=== PATIENT | male | born 1940 | race Caucasian/White ===

== ENCOUNTER 2016-08-05 12:52 | Emergency (ER) | payer OTHER ==
--- NOTE | 2016-08-05 16:20 | ED ORDER SUMMARY ---
..... Patient: DIRK MONTEZ OrderSheet [facility] VisitID: [id number] [address] [place] [address] 76y, M Registration Date/Time: 08/05/2016 ORDER SHEET Weight: 86.1 kg (stated) Allergies: No Known Drug Allergy GENERAL ORDERS: - (please stefano area of erythema with skin pen) (16:16 08/05/2016 HBivens A.R.N.P.) (16:41 Roseanna R.N.) MEDICATION ORDERS: Ceftriaxone IM 1 gm (NOW) (16:15 08/05/2016 HBivens A.R.N.P.) (16:41 Roseanna R.N.) IV FLUIDS: ORDER SHEET NOTES: [Electronically signed by Ayden Talbot R.N. (18:06 08/05/2016)] [Electronically signed by Kimberly JuarezR.N.PSara (23:58 08/05/2016)] [Electronically locked/signed by Ayden Talbot R.N. (18:06 08/05/2016)]
--- NOTE | 2016-08-05 16:20 | ED CLINICAL REPORT ---
Clinical Report - Physicians/Mid Levels [facility] [address] [place] [address] 08/05/2016 12:53 Patient: DIRK MONTEZ Time Seen: 15:48; initial patient contact, initial documentation, patient care assumed. Arrived- By private vehicle. Historian- patient. HISTORY OF PRESENT ILLNESS Chief Complaint: LESION. This started about 1 weeks ago and is still present. Not itchy, painful or burning. It has been located on the right 1st toe. No cause has been identified. (not sure what happened, had sore there). Similar symptoms previously: None. Recent medical care: The patient was seen recently in the office. ( went to dr about a week ago, I&D attempted, but nothing came out, placed on Keflex, got a call today that the wound cx was mrsa, was told to come to hospital for iv abx). REVIEW OF SYSTEMS No fever or difficulty breathing. All systems otherwise negative, except as recorded above. PAST HISTORY See nurses notes. PROBLEMS: Abscess. Pedal Edema. Sinus Tachycardia. Unstable Angina. Hypertension. Abdominal Pain. Contusion. Diarrhea. Vertigo. Abnormal Liver Function Test. Hyponatremia. Syncope. Gastroesophageal Reflux Disease. Depression. Cancer. Hypercholesterolemia. Hypotension. Arthritis. PPH. --13:48 Ganga Kearney RDimitri. ADDITIONAL SURGERIES: Abdominal Sx. Adenoidectomy. Appendectomy. Cataract Surgery. Hernia Repair. Index finger right . Perforatated Diverticulitis []. Right great toe. Shoulder Surgery. Tonsillectomy. --13:48 Ganga Kearney RDimitri. SOCIAL HISTORY Heavy alcohol use; consumes two beers a day. No drug use. No recent travel. Is a local resident. FAMILY HISTORY Negative. ADDITIONAL NOTES The nursing notes have been reviewed with agreement regarding the chief complaint, HPI, ROS, PMH and patient medications and allergies. PHYSICAL EXAM Vital Signs: 08/05/2016 13:42 BP: 144/69. HR: 79. RR: 18. O2 saturation: 98%. Temp: 98.2 F. Have been reviewed as normal and appear to be correct. Appearance: Alert. Oriented X3. No acute distress. Neck: Neck supple. Respiratory: No respiratory distress. Skin: Skin warm and dry. Normal skin color. No rash. Normal skin turgor. (healing wound/ulcer to medial side of R great toe, flat, no fluctuance, with mild erythema edges, no warmth, no dc). Extremities: Normal external inspection. Extremities nontender. Neuro: Oriented X 3. No motor deficit. No sensory deficit. PROGRESS AND PROCEDURES Patient counseled in person regarding the patient's stable condition and diagnosis. 16:20. Differential Diagnosis: Other possible considerations: mrsa, cellulitis, corn, ulcer, abscess, infected abrasion, blister. Above considerations are based on history and physical exam. Differential diagnosis was discussed with patient. Disposition: Discharged home in good and unchanged condition (16:20). Condition: good and stable. CLINICAL IMPRESSION Single superficial healing abscess to the right foot. INSTRUCTIONS Warnings: GENERAL WARNINGS: Return or contact your physician immediately if your condition worsens or changes unexpectedly, if not improving as expected, or if other problems arise. Specifically return if problem worsens. Prescription Medications: Bactrim DS 800 mg / 160 mg: take 1 tablet orally every 12 hours for 10 days. No refill. Bactroban 2% ointment: apply small amount to affected area three times daily for 5 days. Dispense twenty-two (22) grams. No refills. Substitution is permissible. Follow-up: Follow up with your doctor in about three days even if well and for wound check. Call for an appointment. Summary of care provided to patient. Understanding of the discharge instructions verbalized by patient. (Electronically signed by Kimberly Juarez A.R.N.P. 08/05/2016 23:58)
--- NOTE | 2016-08-05 16:20 | ED NURSING NOTES ---
Clinical Report - Nurses [address] [place] [address] 08/05/2016 12:53 Patient: DIRK MONTEZ TRIAGE Triage time 13:42 Aug 05 2016. Acuity: LEVEL 3. LUCI COMA SCORE: [place] Coma Scale: 15- eyes open spontaneously (4); best verbal response- oriented x 4 (5); best motor response- obeys commands (6). --13:51 Ganga Kearney R.N. 13:42 08/05/16. BP: 144/69. HR: 79. RR: 18. O2 saturation: 98%. Temp: 98.2 F. Pain level now 10/06. --13:51 Ganga Kearney R.N. Chief Complaint: Location of symptoms- (Right foot MRSA wound - referred by PCP). late entry -13:42. --18:04 Ayden Talbot R.N. Weight: 86.1 kg stated. Height/Length: 74 inches Per Patient. BMI: 24.4. --13:50 Ganga Kearney R.N. Medications Cephalexin Oral. --13:45 Ganga Kearney R.N. Diltiazem HCl Oral. --13:46 Ganga Kearney R.N. Metoprolol Tartrate Oral. --13:46 Ganga Kearney R.N. TraZODone HCl Oral. --13:46 Ganga Kearney R.N. Probiotic + [place]-3 Oral. --13:46 Ganga Kearney R.N. Atorvastatin Calcium Oral. --13:47 Ganga Kearney R.N. Vitamins/Minerals Oral. --13:47 Ganga Kearney R.N. Allergies No Known Drug Allergy. --13:48 Ganga Kearney R.N. History Historian: patient. Primary physician (Dr. Lin [facility]). ( examined right big toe abscess and took a swab which came back MRSA positive. Was directed by MD to go to ER michael.). No injury occurred. ( Right big toe abscess was attempted to drain but MD only could get a little of fluid from it.). He has had swelling and redness. No fever, difficulty breathing, skin rash, itching or trouble walking. No weakness. Treatment [employer]: (antibiotics). PAST MEDICAL HX: Tetanus status: up-to-date. SOCIAL HX: Smoker- current status unknown. Occasional alcohol use; consumes two beers a day. No infectious disease exposure. SELF HARM ASSESSMENT: A self harm assessment was performed. The patient answered "yes" to the question "Have you recently felt down, depressed, or hopeless?" and "no" to the question "Do you have thoughts of harming or killing yourself?". FALL RISK ASSESSMENT: Fall risk assessment completed. No fall risk identified. NUTRITIONAL RISK ASSESSMENT: The nutritional risk assessment revealed no deficiencies. FUNCTIONAL ASSESSMENT: Functional assessment: no impairments noted. LEARNING NEEDS ASSESSMENT: The learning needs assessment revealed no barriers. ABUSE ASSESSMENT: Abuse assessment: (yes) The patient was asked "Do you feel safe in your home?". SKIN INTEGRITY ASSESSMENT: Skin integrity risk assessment completed. No skin integrity risk identified. --13:51 Ganga Kearney R.N. PROBLEMS: Abscess. Pedal Edema. Sinus Tachycardia. Unstable Angina. Hypertension. Abdominal Pain. Contusion. Diarrhea. Vertigo. Abnormal Liver Function Test. Hyponatremia. Syncope. Gastroesophageal Reflux Disease. Depression. Cancer. Hypercholesterolemia. Hypotension. Arthritis. PPH. --13:48 Ganga Kearney R.N. ADDITIONAL SURGERIES: Abdominal Sx. Adenoidectomy. Appendectomy. Cataract Surgery. Hernia Repair. Index finger right . Perforatated Diverticulitis []. Right great toe. Shoulder Surgery. Tonsillectomy. --13:48 Ganga Kearney R.N. Interventions ID band on patient. --13:51 Ganga Kearney R.N. PHYSICAL ASSESSMENT Ambulatory to room. GENERAL / NEURO / PSYCH: Oriented X 4. Alert. Appears in no acute distress. No weakness. No numbness. CVS: Capillary refill is not greater than 2 seconds. EXTREMITIES: Increased warmth on the extremities. No lower extremity edema. No limited ROM present or calf tenderness. Right foot: and foot, plantar aspect. Right big toe: tenderness and erythema. SKIN: Single wound present on the right foot. Skin is warm and dry. --13:54 Ganga Kearney R.N. NURSING PROGRESS NOTES The initial plan of care for this patient includes an assessment with efforts to address patient positioning; impairment of the integumentary system. Pulse oximeter and NIBP monitor placed on patient. Call light placed in reach. Side rails up x 1. Bed placed in lowest position. Brakes of bed on. --13:55 Ganga Kearney R.N. 15:51 08/05/16. BP: 158/81. HR: 87. RR: 20. O2 saturation: 98% on room air. Pain level now: 09/08. --15:51 Ayden Talbot R.N. 16:41 08/05/2016 Ceftriaxone IM 1 gm given. Given in the left deltoid. Allergies verified and confirmed 5 rights. --16:41 Ayden Talbot R.N. 16:50 08/05/2016 Ceftriaxone IM Response: no adverse reaction. --16:58 Ayden Talbot R.N. 16:00 08/05/16. BP: 135/76. HR: 86. RR: 20. O2 saturation: 98% on room air. Pain level now: 09/08. --18:02 Ayden Talbot R.N. DISPOSITION / DISCHARGE 16:58 08/05/16. Departure time: 1650. Condition at departure: unchanged and stable. No learning barriers present. Discharge instructions provided and reviewed with the patient. Reviewed warnings. Reviewed medication(s). Treatments reviewed. Patient verbalized understanding. Written instructions provided in Ivorian. The patient was discharged by the nurse practitioner. He was discharged home. He left the Emergency Department ambulatory and via private vehicle. Patient driving. --16:58 Ayden Talbot R.N. 16:30 08/05/16. BP: 135/85. HR: 90. RR: 20. O2 saturation: 99% on room air. Temp: 98.2 F (oral). Pain level now: 09/08. --16:58 Ayden Talbot R.N. late entry -16:58. ( Provided thorough pt teaching regarding wound care, meds, f/u plan.). --18:06 Ayden Talbot R.N. Locked/Released at 08/05/2016 18:06 by Ayden Talbot R.N.
--- NOTE | 2016-08-05 16:20 | ED NURSING NOTES ---
Clinical Report - Nurses [address] [place] [address] 08/05/2016 12:53 Patient: DIRK MONTEZ TRIAGE Triage time 13:42 Aug 05 2016. Acuity: LEVEL 3. LUCI COMA SCORE: [place] Coma Scale: 15- eyes open spontaneously (4); best verbal response- oriented x 4 (5); best motor response- obeys commands (6). --13:51 Ganga Kearney R.N. 13:42 08/05/16. BP: 144/69. HR: 79. RR: 18. O2 saturation: 98%. Temp: 98.2 F. Pain level now 10/06. --13:51 Ganga Kearney R.N. Chief Complaint: Location of symptoms- (Right foot MRSA wound - referred by PCP). late entry -13:42. --18:04 Ayden Talbot R.N. Weight: 86.1 kg stated. Height/Length: 74 inches Per Patient. BMI: 24.4. --13:50 Ganga Kearney R.N. Medications Cephalexin Oral. --13:45 Ganga Kearney R.N. Diltiazem HCl Oral. --13:46 Ganga Kearney R.N. Metoprolol Tartrate Oral. --13:46 Ganga Kearney R.N. TraZODone HCl Oral. --13:46 Ganga Kearney R.N. Probiotic + [place]-3 Oral. --13:46 Ganga Kearney R.N. Atorvastatin Calcium Oral. --13:47 Ganga Kearney R.N. Vitamins/Minerals Oral. --13:47 Ganga Kearney R.N. Allergies No Known Drug Allergy. --13:48 Ganga Kearney R.N. History Historian: patient. Primary physician (Dr. Lin [facility]). ( examined right big toe abscess and took a swab which came back MRSA positive. Was directed by MD to go to ER michael.). No injury occurred. ( Right big toe abscess was attempted to drain but MD only could get a little of fluid from it.). He has had swelling and redness. No fever, difficulty breathing, skin rash, itching or trouble walking. No weakness. 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 PAST MEDICAL HX: Tetanus status: up-to-date. SOCIAL HX: Smoker- current status unknown. Occasional alcohol use; consumes two beers a day. No infectious disease exposure. SELF HARM ASSESSMENT: A self harm assessment was performed. The patient answered "yes" to the question "Have you recently felt down, depressed, or hopeless?" and "no" to the question "Do you have thoughts of harming or killing yourself?". FALL RISK ASSESSMENT: Fall risk assessment completed. No fall risk identified. NUTRITIONAL RISK ASSESSMENT: The nutritional risk assessment revealed no deficiencies. FUNCTIONAL ASSESSMENT: Functional assessment: no impairments noted. LEARNING NEEDS ASSESSMENT: The learning needs assessment revealed no barriers. ABUSE ASSESSMENT: Abuse assessment: (yes) The patient was asked "Do you feel safe in your home?". SKIN INTEGRITY ASSESSMENT: Skin integrity risk assessment completed. No skin integrity risk identified. --13:51 Ganga Kearney R.N. PROBLEMS: Abscess. Pedal Edema. Sinus Tachycardia. Unstable Angina. Hypertension. Abdominal Pain. Contusion. Diarrhea. Vertigo. Abnormal Liver Function Test. Hyponatremia. Syncope. Gastroesophageal Reflux Disease. Depression. Cancer. Hypercholesterolemia. Hypotension. Arthritis. PPH. --13:48 Ganga Kearney R.N. ADDITIONAL SURGERIES: Abdominal Sx. Adenoidectomy. Appendectomy. Cataract Surgery. Hernia Repair. Index finger right . Perforatated Diverticulitis []. Right great toe. Shoulder Surgery. Tonsillectomy. --13:48 Ganga Kearney R.N. Interventions ID band on patient. --13:51 Ganga Kearney R.N. PHYSICAL ASSESSMENT Ambulatory to room. GENERAL / NEURO / PSYCH: Oriented X 4. Alert. Appears in no acute distress. No weakness. No numbness. CVS: Capillary refill is not greater than 2 seconds. EXTREMITIES: Increased warmth on the extremities. No lower extremity edema. No limited ROM present or calf tenderness. Right foot: and foot, plantar aspect. Right big toe: tenderness and erythema. SKIN: Single wound present on the right foot. Skin is warm and dry. --13:54 Ganga Kearney R.N. NURSING PROGRESS NOTES The initial plan of care for this patient includes an assessment with efforts to address patient positioning; impairment of the integumentary system. Pulse oximeter and NIBP monitor placed on patient. Call light placed in reach. Side rails up x 1. Bed placed in lowest position. Brakes of bed on. --13:55 Ganga Kearney R.N. 15:51 08/05/16. BP: 158/81. HR: 87. RR: 20. O2 saturation: 98% on room air. Pain level now: 09/08. --15:51 Ayden Talbot R.N. 16:41 08/05/2016 Ceftriaxone IM 1 gm given. Given in the left deltoid. Allergies verified and confirmed 5 rights. --16:41 Ayden Talbot R.N. 16:50 08/05/2016 Ceftriaxone IM Response: no adverse reaction. --16:58 Ayden Talbot R.N. 16:00 08/05/16. BP: 135/76. HR: 86. RR: 20. O2 saturation: 98% on room air. Pain level now: 09/08. --18:02 Ayden Talbot R.N. DISPOSITION / DISCHARGE 16:58 08/05/16. Departure time: 1650. Condition at departure: unchanged and stable. No learning barriers present. Discharge instructions provided and reviewed with the patient. Reviewed warnings. Reviewed medication(s). Treatments reviewed. Patient verbalized understanding. Written instructions provided in Taiwanese. The patient was discharged by the nurse practitioner. He was discharged home. He left the Emergency Department ambulatory and via private vehicle. Patient driving. --16:58 Ayden Talbot R.N. 16:30 08/05/16. BP: 135/85. HR: 90. RR: 20. O2 saturation: 99% on room air. Temp: 98.2 F (oral). Pain level now: 09/08. --16:58 Ayden Talbot R.N. late entry -16:58. ( Provided thorough pt teaching regarding wound care, meds, f/u plan.). --18:06 Ayden Talbot R.N. Locked/Released at 08/05/2016 18:06 by Ayden Talbot R.N.
--- NOTE | 2016-08-05 16:20 | ED ORDER SUMMARY ---
..... Patient: DIRK MONTEZ OrderSheet [facility] VisitID: [id number] [address] [place] [address] 76y, M Registration Date/Time: 08/05/2016 ORDER SHEET Weight: 86.1 kg (stated) Allergies: No Known Drug Allergy GENERAL ORDERS: - (please stefano area of erythema with skin pen) (16:16 08/05/2016 HBivens A.R.N.P.) (16:41 Roseanna R.N.) MEDICATION ORDERS: Ceftriaxone IM 1 gm (NOW) (16:15 08/05/2016 HBivens A.R.N.P.) (16:41 Roseanna R.N.) IV FLUIDS: ORDER SHEET NOTES: [Electronically signed by Ayden Talbot R.N. (18:06 08/05/2016)] [Electronically signed by Kimberly JuarezR.N.PSara (23:58 08/05/2016)] [Electronically locked/signed by Ayden Talbot R.N. (18:06 08/05/2016)]
--- NOTE | 2016-08-05 23:59 | ED MAR SUMMARY ---
..... Medication Administration Record [facility] [address] [place] [address] Patient: DIRK MONTEZ Visit ID: [id number] 76y, M Weight: 86.1 kg Height/Length: 74 in BMI: 24.4 ALLERGIES: No Known Drug Allergy Given 16:41 08/05/2016 Ayden Talbot R.N. Medication Administered: CEFTRIAXONE [IM], Dose: 1 gm IM. Medication Ordered: Ceftriaxone IM 1 gm (NOW).
--- NOTE | 2016-08-05 23:59 | ED MED RECONCILIATION SUMMARY ---
Patient: DIRK MONTEZ Medication Reconciliation Report [facility] VisitID: [id number] [place] [address] 76y, M Registration Date/Time: 08/05/2016 Weight: 86.1 kg Height/Length: 74 in. BMI: 24.4 ALLERGIES: No Known Drug Allergy The patient's Home Medications are listed below: THE FOLLOWING MEDICATIONS NEED TO BE RECONCILED: Atorvastatin Calcium Oral Cephalexin Oral Diltiazem HCl Oral Metoprolol Tartrate Oral Probiotic + [place]-3 Oral TraZODone HCl Oral Vitamins/Minerals Oral The source(s) of the original Home Medication information: Not obtained. The following Medications were given to the patient in the Emergency Department: Ceftriaxone [IM] IM 1 gm, administered: 08/05/2016 4:41:00 PM The following Medications were prescribed to the patient: Bactrim DS 800 mg / 160 mg: take 1 tablet orally every 12 hours for 10 days. No refill. -- Kimberly Juarez A.R.N.P. Bactroban 2% ointment: apply small amount to affected area three times daily for 5 days. Dispense twenty-two (22) grams. No refills. Substitution is permissible. -- Kimberly Juarez A.R.N.P.
--- NOTE | 2016-08-05 23:59 | ED MAR SUMMARY ---
..... Medication Administration Record [facility] [address] [place] [address] Patient: DIRK MONTEZ Visit ID: [id number] 76y, M Weight: 86.1 kg Height/Length: 74 in BMI: 24.4 ALLERGIES: No Known Drug Allergy Given 16:41 08/05/2016 Ayden Talbot R.N. Medication Administered: CEFTRIAXONE [IM], Dose: 1 gm IM. Medication Ordered: Ceftriaxone IM 1 gm (NOW).
--- NOTE | 2016-08-05 23:59 | ED MED RECONCILIATION SUMMARY ---
Patient: DIRK MONTEZ Medication Reconciliation Report [facility] VisitID: [id number] [place] [address] 76y, M Registration Date/Time: 08/05/2016 Weight: 86.1 kg Height/Length: 74 in. BMI: 24.4 ALLERGIES: No Known Drug Allergy The patient's Home Medications are listed below: THE FOLLOWING MEDICATIONS NEED TO BE RECONCILED: Atorvastatin Calcium Oral Cephalexin Oral Diltiazem HCl Oral Metoprolol Tartrate Oral Probiotic + [place]-3 Oral TraZODone HCl Oral Vitamins/Minerals Oral The source(s) of the original Home Medication information: Not obtained. The following Medications were given to the patient in the Emergency Department: Ceftriaxone [IM] IM 1 gm, administered: 08/05/2016 4:41:00 PM The following Medications were prescribed to the patient: Bactrim DS 800 mg / 160 mg: take 1 tablet orally every 12 hours for 10 days. No refill. -- Kimberly Juarez A.R.N.P. Bactroban 2% ointment: apply small amount to affected area three times daily for 5 days. Dispense twenty-two (22) grams. No refills. Substitution is permissible. -- Kimberly Juarez A.R.N.P.
--- NOTE | 2016-08-05 23:59 | ED DISCHARGE INSTRUCTIONS ---
Patient: DIRK MONTEZ General Instructions [facility] VisitID: [id number] [place] [address] 76y, M Registration Date/Time: 08/05/2016 Single superficial healing abscess to the right foot. INSTRUCTIONS Warnings: GENERAL WARNINGS: Return or contact your physician immediately if your condition worsens or changes unexpectedly, if not improving as expected, or if other problems arise. Specifically return if problem worsens. Prescription Medications: Bactrim DS 800 mg / 160 mg: take 1 tablet orally every 12 hours for 10 days. No refill. Bactroban 2% ointment: apply small amount to affected area three times daily for 5 days. Dispense twenty-two (22) grams. No refills. Substitution is permissible. Follow-up: Follow up with your doctor in about three days even if well and for wound check. Call for an appointment. Summary of care provided to patient. Understanding of the discharge instructions verbalized by patient. ADDITIONAL INFORMATION Abscess (Antibiotic Treatment Only) An abscess (sometimes called a boil) occurs when bacteria get trapped under the skin and begin to grow. Pus forms inside the abscess as the body responds to the bacteria. An abscess can occur with an insect bite, ingrown hair, blocked oil gland, pimple, cyst, or puncture wound. In the early stages, redness and tenderness are the only symptoms. Sometimes, this stage can be treated with antibiotics alone. If the abscess does not respond to antibiotic treatment, it will need to be drained with a small cut, under local anesthesia. Home care The following will help you care for your abscess at home: Soak the wound in hot water or apply hot packs (small towel soaked in hot water) to the area for 20 minutes at a time. Do this three to four times a day. Apply antibiotic cream or ointment onto the skin 3-4 times a day, unless something else was prescribed. Some ointments include an antibiotic plus a local pain reliever. If your doctor prescribed antibiotics, do not stop taking this medication until you have finished the prescribed course or the doctor tells you to stop. You may use an jrem-tsz-cwrwnbu pain medication to control pain, unless another pain medicine was prescribed. If you have chronic liver or kidney disease or ever had a stomach ulcer or GI bleeding, talk with your doctor before using these any of these. Follow-up care Follow up with your health care provider as advised by our staff. Look at your wound each day for the signs of worsening infection listed below. When to seek medical care Get prompt medical attention if any of the following occur: An increase in redness or swelling Red streaks in the skin leading away from the abscess An increase in local pain or swelling Fever of 100.4F (38C) or higher, or as directed by your health care provider Pus or fluid coming from the abscess Sulfamethoxazole, Trimethoprim Oral tablet What is this medicine? SULFAMETHOXAZOLE; TRIMETHOPRIM or SMX-TMP (suhl fuh meth OK syed zohl; trye METH oh prim) is a combination of a sulfonamide antibiotic and a second antibiotic, trimethoprim. It is used to treat or prevent certain kinds of bacterial infections. It will not work for colds, flu, or other viral infections. How should I use this medicine? Take this medicine by mouth with a full glass of water. Follow the directions on the prescription label. Take your medicine at regular intervals. Do not take it more often than directed. Do not skip doses or stop your medicine early. Talk to your event specialist product demonstrator regarding the use of this medicine in children. Special care may be needed. This medicine has been used in children as young as 2 months of age. What side effects may I notice from receiving this medicine? Side effects that you should report to your doctor or health landcare officer as soon as possible: allergic reactions like skin rash or hives, swelling of the face, lips, or tongue breathing problems fever or chills, sore throat irregular heartbeat, chest pain joint or muscle pain pain or difficulty passing urine red pinpoint spots on skin redness, blistering, peeling or loosening of the skin, including inside the mouth unusual bleeding or bruising unusually weak or tired yellowing of the eyes or skin Side effects that usually do not require medical attention (report to your doctor or health landcare officer if they continue or are bothersome): diarrhea dizziness headache loss of appetite nausea, vomiting nervousness What may interact with this medicine? Do not take this medicine with any of the following medications: aminobenzoate potassium dofetilide metronidazole This medicine may also interact with the following medications: KARINA inhibitors like benazepril, enalapril, lisinopril, and ramipril cyclosporine digoxin diuretics indomethacin medicines for diabetes methenamine methotrexate phenytoin potassium supplements pyrimethamine sulfinpyrazone tricyclic antidepressants warfarin What if I miss a dose? If you miss a dose, take it as soon as you can. If it is almost time for your next dose, take only that dose. Do not take double or extra doses. Where should I keep my medicine? Keep out of the reach of children. Store at room temperature between 20 to 25 degrees C (68 to 77 degrees F). Protect from light. Throw away any unused medicine after the expiration date. What should I tell my health care provider before I take this medicine? They need to know if you have any of these conditions: anemia asthma being treated with anticonvulsants if you frequently drink alcohol containing drinks kidney disease liver disease low level of folic acid or wverrtz-1-yvgvntrwc dehydrogenase poor nutrition or malabsorption porphyria severe allergies thyroid disorder an unusual or allergic reaction to sulfamethoxazole, trimethoprim, sulfa drugs, other medicines, foods, dyes, or preservatives or trying to get breast-feeding What should I watch for while using this medicine? Tell your doctor or health landcare officer if your symptoms do not improve. Drink several glasses of water a day to reduce the risk of kidney problems. Do not treat diarrhea with over the counter products. Contact your doctor if you have diarrhea that lasts more than 2 days or if it is severe and watery. This medicine can make you more sensitive to the sun. Keep out of the sun. If you cannot avoid being in the sun, wear protective clothing and use a sunscreen. Do not use sun lamps or tanning beds/booths. Mupirocin Topical ointment What is this medicine? MUPIROCIN (myoo PEER oh sin) is an antibiotic. It is used on the skin to treat skin infections. How should I use this medicine? This medicine is for external use only. Follow the directions on the prescription label. Wash your hands before and after use. Before applying, wash the affected area with mild soap and water and pat dry. Apply a small amount to the affected area and rub gently. You can cover the area with a gauze dressing. Do not get this medicine in your eyes. If you do, rinse out with plenty of cool tap water. Do not use your medicine more often than directed. Finish the full course of medicine prescribed by your doctor or health landcare officer even if you think your condition is better. Do not use over large areas of burnt skin. Talk to your event specialist product demonstrator regarding the use of this medicine in children. Special care may be needed. What side effects may I notice from receiving this medicine? Side effects that you should report to your doctor or health landcare officer as soon as possible: skin rash, redness, continued swelling, burning, itching, stinging, or pain Side effects that usually do not require medical attention (report to your doctor or health landcare officer if they continue or are bothersome): dry skin, itching What may interact with this medicine? Interactions are not expected. Do not use any other skin products on the affected area without telling your doctor or health landcare officer. What if I miss a dose? If you miss a dose, take it as soon as you can. If it is almost time for your next dose, take only that dose. Do not take double or extra doses. Where should I keep my medicine? Keep out of the reach of children. Store at room temperature between 20 and 25 degrees C (68 and 77 degrees F). Throw away any unused medicine after the expiration date. What should I tell my health care provider before I take this medicine? They need to know if you have any of these conditions: an unusual or allergic reaction to mupirocin, polyethylene glycol (PEG), or other topical antibiotic medicine or trying to get breast-feeding What should I watch for while using this medicine? Tell your doctor or health landcare officer if your skin condition does not begin to improve within 3 to 5 days. You have been given the following additional information: Abscess, Antiobiotic Treatment Only Sulfamethoxazole, Trimethoprim Oral tablet Mupirocin Topical ointment (Electronically signed by Kimberly Juarez A.R.N.P. 08/05/2016 23:58)
--- NOTE | 2016-08-05 23:59 | ED DISCHARGE INSTRUCTIONS ---
Patient: DIRK MONTEZ General Instructions [facility] VisitID: [id number] [place] [address] 76y, M Registration Date/Time: 08/05/2016 Single superficial healing abscess to the right foot. INSTRUCTIONS Warnings: GENERAL WARNINGS: Return or contact your physician immediately if your condition worsens or changes unexpectedly, if not improving as expected, or if other problems arise. Specifically return if problem worsens. Prescription Medications: Bactrim DS 800 mg / 160 mg: take 1 tablet orally every 12 hours for 10 days. No refill. Bactroban 2% ointment: apply small amount to affected area three times daily for 5 days. Dispense twenty-two (22) grams. No refills. Substitution is permissible. Follow-up: Follow up with your doctor in about three days even if well and for wound check. Call for an appointment. Summary of care provided to patient. Understanding of the discharge instructions verbalized by patient. ADDITIONAL INFORMATION Abscess (Antibiotic Treatment Only) An abscess (sometimes called a boil) occurs when bacteria get trapped under the skin and begin to grow. Pus forms inside the abscess as the body responds to the bacteria. An abscess can occur with an insect bite, ingrown hair, blocked oil gland, pimple, cyst, or puncture wound. In the early stages, redness and tenderness are the only symptoms. Sometimes, this stage can be treated with antibiotics alone. If the abscess does not respond to antibiotic treatment, it will need to be drained with a small cut, under local anesthesia. Home care The following will help you care for your abscess at home: Soak the wound in hot water or apply hot packs (small towel soaked in hot water) to the area for 20 minutes at a time. Do this three to four times a day. Apply antibiotic cream or ointment onto the skin 3-4 times a day, unless something else was prescribed. Some ointments include an antibiotic plus a local pain reliever. If your doctor prescribed antibiotics, do not stop taking this medication until you have finished the prescribed course or the doctor tells you to stop. You may use an cjsv-gqd-jymnoix pain medication to control pain, unless another pain medicine was prescribed. If you have chronic liver or kidney disease or ever had a stomach ulcer or GI bleeding, talk with your doctor before using these any of these. Follow-up care Follow up with your health care provider as advised by our staff. Look at your wound each day for the signs of worsening infection listed below. When to seek medical care Get prompt medical attention if any of the following occur: An increase in redness or swelling Red streaks in the skin leading away from the abscess An increase in local pain or swelling Fever of 100.4F (38C) or higher, or as directed by your health care provider Pus or fluid coming from the abscess Sulfamethoxazole, Trimethoprim Oral tablet What is this medicine? SULFAMETHOXAZOLE; TRIMETHOPRIM or SMX-TMP (suhl fuh meth OK syed zohl; trye METH oh prim) is a combination of a sulfonamide antibiotic and a second antibiotic, trimethoprim. It is used to treat or prevent certain kinds of bacterial infections. It will not work for colds, flu, or other viral infections. How should I use this medicine? Take this medicine by mouth with a full glass of water. Follow the directions on the prescription label. Take your medicine at regular intervals. Do not take it more often than directed. Do not skip doses or stop your medicine early. Talk to your sales ambassador regarding the use of this medicine in children. Special care may be needed. This medicine has been used in children as young as 2 months of age. What side effects may I notice from receiving this medicine? Side effects that you should report to your doctor or health care coordination manager as soon as possible: allergic reactions like skin rash or hives, swelling of the face, lips, or tongue breathing problems fever or chills, sore throat irregular heartbeat, chest pain joint or muscle pain pain or difficulty passing urine red pinpoint spots on skin redness, blistering, peeling or loosening of the skin, including inside the mouth unusual bleeding or bruising unusually weak or tired yellowing of the eyes or skin Side effects that usually do not require medical attention (report to your doctor or health care coordination manager if they continue or are bothersome): diarrhea dizziness headache loss of appetite nausea, vomiting nervousness What may interact with this medicine? Do not take this medicine with any of the following medications: aminobenzoate potassium dofetilide metronidazole This medicine may also interact with the following medications: KARINA inhibitors like benazepril, enalapril, lisinopril, and ramipril cyclosporine digoxin diuretics indomethacin medicines for diabetes methenamine methotrexate phenytoin potassium supplements pyrimethamine sulfinpyrazone tricyclic antidepressants warfarin What if I miss a dose? If you miss a dose, take it as soon as you can. If it is almost time for your next dose, take only that dose. Do not take double or extra doses. Where should I keep my medicine? Keep out of the reach of children. Store at room temperature between 20 to 25 degrees C (68 to 77 degrees F). Protect from light. Throw away any unused medicine after the expiration date. What should I tell my health care provider before I take this medicine? They need to know if you have any of these conditions: anemia asthma being treated with anticonvulsants if you frequently drink alcohol containing drinks kidney disease liver disease low level of folic acid or ygdbbdq-[id number] dehydrogenase poor nutrition or malabsorption porphyria severe allergies thyroid disorder an unusual or allergic reaction to sulfamethoxazole, trimethoprim, sulfa drugs, other medicines, foods, dyes, or preservatives or trying to get breast-feeding What should I watch for while using this medicine? Tell your doctor or health care coordination manager if your symptoms do not improve. Drink several glasses of water a day to reduce the risk of kidney problems. Do not treat diarrhea with over the counter products. Contact your doctor if you have diarrhea that lasts more than 2 days or if it is severe and watery. This medicine can make you more sensitive to the sun. Keep out of the sun. If you cannot avoid being in the sun, wear protective clothing and use a sunscreen. Do not use sun lamps or tanning beds/booths. Mupirocin Topical ointment What is this medicine? MUPIROCIN (myoo PEER oh sin) is an antibiotic. It is used on the skin to treat skin infections. How should I use this medicine? This medicine is for external use only. Follow the directions on the prescription label. Wash your hands before and after use. Before applying, wash the affected area with mild soap and water and pat dry. Apply a small amount to the affected area and rub gently. You can cover the area with a gauze dressing. Do not get this medicine in your eyes. If you do, rinse out with plenty of cool tap water. Do not use your medicine more often than directed. Finish the full course of medicine prescribed by your doctor or health care coordination manager even if you think your condition is better. Do not use over large areas of burnt skin. Talk to your sales ambassador regarding the use of this medicine in children. Special care may be needed. What side effects may I notice from receiving this medicine? Side effects that you should report to your doctor or health care coordination manager as soon as possible: skin rash, redness, continued swelling, burning, itching, stinging, or pain Side effects that usually do not require medical attention (report to your doctor or health care coordination manager if they continue or are bothersome): dry skin, itching What may interact with this medicine? Interactions are not expected. Do not use any other skin products on the affected area without telling your doctor or health care coordination manager. What if I miss a dose? If you miss a dose, take it as soon as you can. If it is almost time for your next dose, take only that dose. Do not take double or extra doses. Where should I keep my medicine? Keep out of the reach of children. Store at room temperature between 20 and 25 degrees C (68 and 77 degrees F). Throw away any unused medicine after the expiration date. What should I tell my health care provider before I take this medicine? They need to know if you have any of these conditions: an unusual or allergic reaction to mupirocin, polyethylene glycol (PEG), or other topical antibiotic medicine or trying to get breast-feeding What should I watch for while using this medicine? Tell your doctor or health care coordination manager if your skin condition does not begin to improve within 3 to 5 days. You have been given the following additional information: Abscess, Antiobiotic Treatment Only Sulfamethoxazole, Trimethoprim Oral tablet Mupirocin Topical ointment (Electronically signed by Kimberly Juarez A.R.N.P. 08/05/2016 23:58)
== END 2016-08-05 16:50 | disposition home or self-care (01) ==
LOC: ED SRH 12:52
DX: L02.611 Cutaneous abscess of right foot (principal); I10 Essential (primary) hypertension; K21.9 Gastro-esophageal reflux disease without esophagitis; E78.00 Pure hypercholesterolemia, unspecified; Z79.2 Long term (current) use of antibiotics; Z79.899 Other long term (current) drug therapy